=== PATIENT | female | born 1995 | race Caucasian/White ===

== ENCOUNTER 2018-12-22 08:50 | Emergency (ER) | payer OTHER ==
[~2018-12-22] VITALS: Ht 152.4 cm; Wt 54.4 kg
[~2018-12-22 08:50] MED LIST: CEFADROXIL500 MG PO; KETO10TA2 PO; ORPH100T PO
[2018-12-22] MEDS ORDERED: AMOX-CLAV 875-1 EACH PO (09:44)
[2018-12-22] MEDS ORDERED: TUSNEL LIQUID178 ML PO (09:44)
== END 2018-12-22 09:54 | disposition home or self-care (01) ==
LOC: ER 08:50
DX: J06.9 Acute upper respiratory infection, unspecified (principal)

== ENCOUNTER 2019-04-22 06:17 | Emergency (ER) | payer OTHER ==
[~2019-04-22] VITALS: Ht 154.9 cm; Wt 54.4 kg
[~2019-04-22 06:17] MED LIST changes: +AMOX-CLAV 875-1 EACH PO; +TUSNEL LIQUID178 ML PO
[2019-04-22] MEDS ORDERED: ANTICONCEPTIVAS (06:24)
== END 2019-04-22 12:32 | disposition home or self-care (01) ==
LOC: ER 06:17
DX: R10.2 Pelvic and perineal pain (principal)

== ENCOUNTER 2019-11-25 19:54 | Emergency (ER) | payer OTHER ==
[~2019-11-25] VITALS: Ht 154.9 cm; Wt 54.4 kg
[~2019-11-25 19:54] MED LIST changes: +ANTICONCEPTIVAS
== END 2019-11-25 22:45 | disposition home or self-care (01) ==
LOC: ER 19:54
DX: S13.4XXA Sprain of ligaments of cervical spine, initial encounter (principal); S40.012A Contusion of left shoulder, initial encounter; S40.011A Contusion of right shoulder, initial encounter; M54.5 Low back pain; M54.2 Cervicalgia; M62.838 Other muscle spasm; V49.49XA Driver injured in collision with other motor vehicles in traffic accident, initial encounter; Y93.89 Activity, other specified; Y92.413 State road as the place of occurrence of the external cause; Y99.8 Other external cause status